=== PATIENT | female | born 1990 | race Caucasian/White ===

== ENCOUNTER 2018-08-18 01:29 | Outpatient (CLI) | payer OTHER ==
[~2018-08-18] VITALS: Ht 157.5 cm; Wt 91.2 kg
[2018-08-18 01:51] VITALS: BP 119/72
[2018-08-18] MEDS ORDERED: MULTTAB20 PO (01:54)
== END 2018-08-18 03:15 | disposition home or self-care (01) ==
LOC: M LDO 01:29
PROVIDERS: ATTEND Obstetrics & Gynecology
DX: O26.893 Other specified pregnancy related conditions, third trimester (principal); O47.1 False labor at or after 37 completed weeks of gestation; Z3A.37 37 weeks gestation of pregnancy
CPT/HCPCS: 59025; 76815; G0378; G0463

== ENCOUNTER 2018-08-27 07:47 | Inpatient (IN) | payer OTHER ==
[~2018-08-27] VITALS: Ht 157.5 cm; Wt 90.8 kg
[2018-08-27] VITALS (27 sets, daily range): BP systolic 96–130; BP diastolic 50–94
[~2018-08-27 07:47] MED LIST: MULTTAB20 PO
[2018-08-27] MEDS ORDERED: ZOLO50TA PO (08:02)
[2018-08-27] MEDS: PRENATAL VITAMINS CHEWABLE TABLET PO SCH (09:00)
[2018-08-27] MEDS ORDERED: PENICILLIN G POTASSIUM IV 5 MU in D5W MINI-BAG PLUS 100 ML IV STA (10:45)
[2018-08-27] MEDS ORDERED: LACTATED RINGER'S 1000 ML IV STA (10:45)
--- NOTE | 2018-08-27 11:03 | HPEPDOC ---
Obstetrical History & Physical General Date of Admission Aug 27, 2018 at 10:45 History of Present Illness 27 yo at 38+4 weeks today by 7+1 week US on [id number] presents to L&D w ith regular, painful contractions. Denies any vaginal bleeding or leakage of fluid. Endorses movement. complicated by depression for which she takes Zoloft, GDMA1 (well controlled), and obesity. Chief Complaint: Contractions, term Information Provided By: Patient Age: 27 : 5 Term: 3 Pre-term: 0 Abortions: 1 Livin Care Care: Good Care Dating Final EDC: Sep 06, 2018 Final EDC for Daily Update: Sep 06, 2018 Final EDC by: 1st trimester (US) (7+1 week US on [id number] set ANNA of [id number]) 1st Trimester Date: Jan 19, 2018 Antepartum Course Diagnos(e)s Depression/anxiety --> was on wellbutrin and then switched to zoloft in 3rd trimester. Obesity --> BMI 32 GDMA1 --> well controlled by diet Past Medical History Past Obstetrical History : Past Obstetrical History: Multigravida (Term X3 with pelvis proven to 6lbs 11oz) Type of Delivery: Spontaneous Vaginal Del. 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 Past Medical History Medical History Depression/anxiety obesity Surgical History: Appendectomy, Tonsilectomy Family History Significant Family History: No pertinent family hx Social History Marital Status: Family situation: Spouse/partner home Psychosocial History: Anxiety, Depression * Smoker: non-smoker Alcohol: Denies Drugs: denies Imunizations Tdap status: current Influenza Status: current Allergies Coded Allergies: hydroxyzine (Verified Allergy, Intermediate, 08/18/18) Medications Scheduled No122/Iron/Folic Acid ( Multi Tablet) 1 Each Tablet, 1 TAB PO DAILY Sertraline Hcl (Zoloft) 50 Mg Tablet, 50 MG PO DAILY Physical Examination Physical Examination GENERAL: Alert and oriented times three. ABDOMEN: Gravid and non-tender to touch. FETUS: Is vertex (VTX) by sterile vaginal examination (SVE) EXTREMITIES: No edema. Vital Signs/I&O Vital Signs Date Time Temp Pulse Resp B/P (MAP) Pulse Ox O2 Delivery O2 Flow Rate FiO2 08/27/18 10:15 79 119/82 (94) 08/27/18 10:14 99.4 08/27/18 08:07 2 Laboratory Data Urine Culture: Contaminated Pertinent Laboratoy Data Blood Type: A+ RBC Antibody Screen: Negative HIV: Negative Hepatitis B: Negative Hepatitis C: Unknown Rapid Plasma Reagin: Nonreactive Rubella: Immune Varicella: Immune Chlamydia/Gonorrhea: Negative Group B Streptococcus: Positive Quad Screen Test: Unknown Cystic Fibrosis: Unknown Glucose Tolerance Test: 150 (Also failed 3hr GTT and has GDMA1) Anatomy Ultrasound Placenta Location: Posterior Normal Anatomy: Yes Placenta Previa: No Vaginal Examination Dilation: 6 cm Effacement: 100% Station: 0 Cervical Consistency: Soft Cervical Position: Anterior Presentation: Cephalic presentation Position: Vertex (occiput) Assessment Heart Rate (FHR): 120 Variability: Moderate Accelerations: Positive Decelerations: None Tocometer Contractions: Yes Frequency: regular Duration: greater than 60 seconds Strength: palpated as strong Assessment/Plan Assessment 27 yo at 38+4 weeks gestation presents to L&D in active labor. Plan Admit to L&D for expectant management of labor. Apply IV fluids. PCN for GBS prophylaxis. Clear liquid diet. Patient may have epidural if desired. Anticipate . DO VALENTINA Hastings CHRISTOPHER J. DO Aug 27, 2018 11:03
[2018-08-27 11:22] LABS: HEMATOCRIT 32.4 % (36.0-47.0); HEMOGLOBIN 10.5 g/dl (12.0-15.5); MEAN CORPUSCULAR HEMOGLOBIN 29.1 pg (27.0-33.0); MEAN CORPUSCULAR HGB CONC 32.4 g/dl (32.0-36.5); MEAN CORPUSCULAR VOLUME 89.8 fl (80.0-96.0); PLATELET COUNT, AUTOMATED 258 10^3/uL (150-450); RED BLOOD COUNT 3.61 10^6/uL (4.00-5.40); WHITE BLOOD COUNT 11.4 10^3/uL (4.0-10.0)
[2018-08-27] MEDS ORDERED: FENTANYL 2MCG/ML ROPIVACAINE 0.2% IN 0.9% NACL 100ML IVBAG As Ordered ONE (11:49)
[2018-08-27] MEDS ORDERED: LR 1,000 ML IV SCH (12:23)
[2018-08-27] MEDS ORDERED: NALOXONE INJ 0.4 MG/1 ML VIAL (J2310) IV PRN (13:00)
[2018-08-27] MEDS ORDERED: ePHEDrine SULFATE 25 MG/5 ML(5MG/ML) SYRINGE IV PRN (13:00)
[2018-08-27] MEDS ORDERED: EPIDURAL COMMENT XX SCH (13:00)
[2018-08-27] MEDS ORDERED: REFRIGERATOR IV KEYS XX PRN (13:00)
[2018-08-27] MEDS ORDERED: EPIDURAL/PCA KEYS XX PRN (13:00)
[2018-08-27] MEDS ORDERED: LACTATED RINGER'S 1000 ML IV PRN (13:00)
[2018-08-27] MEDS ORDERED: FENTANYL/ROPIVACAINE/NACL BAG 100 ML EPIDURAL SCH (13:00)
[2018-08-27] MEDS ORDERED: diphenhydrAMINE INJ 50MG/ML VIAL (J1200) IV PRN (13:00)
[2018-08-27] MEDS ORDERED: ONDANSETRON 4MG/2ML VIAL (J2405) IV PRN (13:00)
[2018-08-27] MEDS ORDERED: OXYTOCIN 30 UNITS IN 0.9% NaCl 500ML IV BAG (J2590) As Ordered ONE (13:20)
[2018-08-27] MEDS ORDERED: PENICILLIN G POTASSIUM IV 2.5 MU in APPROPRIATE DILUENT 1 EA IV SCH (15:30)
[2018-08-27] MEDS ORDERED: OXYTOCIN DRIP 30 UNITS in APPROPRIATE DILUENT 1 EA IV SCH (15:46)
--- NOTE | 2018-08-27 15:50 | DNPDOC ---
[facility] Delivery Note Delivery Note DATE OF DELIVERY: 27Aug2018 at ~1535 PREDELIVERY DIAGNOSIS: 38+4 weeks gestation and active labor POST DELIVERY DIAGNOSIS: Delivered. PROCEDURE: Spontaneous vaginal delivery [employer] ASSISTANT: Dr. Ford ANESTHESIA: Epidural ESTIMATED BLOOD LOSS: 200 mL. FINDINGS: Viable male , 7lbs 3oz, Apgars 9/9 DELIVERY SUMMARY: Presented to room as patient felt a strong urge to push. Cervical exam revealed fetus at +2 station. SROM occurred just before pushing began. The bed was broken down and she was prepped for delivery. With excellent maternal pushing effort her delivered. presentation was ELYSSA with restitution to ROT. The left anterior shoulder delivered with gentle traction followed easily by the remainder of the body. The infant was dried and stimulated on the field and a bulb suction was used. The infant was then placed on the maternal abdomen and cried vigorously. The three vessel cord was then clamped and cut by me after appropriate time delay. Third stage was then completed with gentle traction on the cord and it was productive of an intact placenta. The uterine fundus was firmed with massage and pitocin was administered via IV bolus. Inspection of the vagina, perineum, and cervix revealed no lacerations. The fundus was palpated again and was firm. Sponge, instrument, and needle counts were correct X2. Mother stable when I left the room. DO VALENTINA Hastings CHRISTOPHER J. DO Aug 27, 2018 15:50
[2018-08-27] MEDS ORDERED: MEASLES,MUMPS,RUBELLA VACCINE INJ (MMR-II) (90707) SC SCH (16:00)
[2018-08-27] MEDS ORDERED: IBUPROFEN 600 MG TAB PO PRN (16:00)
[2018-08-27] MEDS ORDERED: DIBUCAINE 1% OINTMENT 30GM TOP PRN (16:00)
[2018-08-27] MEDS ORDERED: PROMETHAZINE 25 MG TAB PO PRN (16:00)
[2018-08-27] MEDS ORDERED: RHOGAM 300 MCG (1500 IU) INJ (J2790) IM SCH (16:00)
[2018-08-27] MEDS ORDERED: DOCUSATE SODIUM 100 MG CAP PO PRN (16:00)
[2018-08-27] MEDS ORDERED: ACETAMINOPHEN 500 MG TAB PO PRN (16:00)
[2018-08-27] MEDS ORDERED: IBUPROFEN 800 MG TAB PO PRN (16:00)
[2018-08-27] MEDS ORDERED: ACETAMINOPHEN TAB 650MG DOSE (2X325MG) PO PRN (16:00)
[2018-08-28 06:39] VITALS: BP 102/59
--- NOTE | 2018-08-28 08:29 | NUR ---
Progress Note Date of Service: Aug 28, 2018 Evy is a 27 yo G5 now P4014 s/p uncomplicated on 27 August at ~1530 after being admitted for active labor. She is currently recovering on the sparks. She reports feeling well this AM and has no complaints. She is ambulating, voiding, tolerating a regular diet, has minimal pain, and minimal lochia. She desires dc home this evening. Vitals - VSS, normotensive, afebrile, non tachycardic General - AAOX3, sitting up in bed, NAD, pleasant and conversant Abdomen - Fundus firm at U-2. No fundal tenderness. Lochia- scant rubra Extremities - No edema UO - appropriate. Ms. Cabrera is doing well and is making an appropriate recovery. Discharge medications ordered at [facility]. DC to home and/or to boarder status this morning pending disposition of NBN this afternoon. Reviewed warning signs, return precautions and and BH resources. Patient advised patient to schedule 6-8 week PP exam. All questions answered.
--- NOTE | 2018-08-28 08:32 | NUR ---
[facility] OB Discharge Summary : 5 Parity: now 4014 VDRL: NR RH: POS GBS: POS Labor-term at 38+4 weeks Delivery 27 August, uncomplicated and attended by Dr. Glynn -see delivery note Anesthesia: none Episiotomy: none AP/PP Course: routine, uncomplicated Admission Dx: Term labor Discharge Dx: Delivered Condition at discharge: Stable Discharge instructions: Dc home and/or boarder status pending disposition of NBN Activity: no heavy lifting Diet: regular Medications: as ordered at [facility] outpatient pharmacy F/U: [facility] Outpatient OBGYN clinic in 6-8 weeks
[2018-08-28] MEDS ORDERED: IBUP-1022 PO (08:36)
[2018-08-28] MEDS ORDERED: ACET1TAB55 PO (08:36)
[2018-08-28] MEDS: PRENATAL VITAMINS CHEWABLE TABLET PO SCH (08:45)
== END 2018-08-28 12:00 | disposition home or self-care (01) | DRG 807 ==
LOC: M LDO 07:47 → M LDI 10:45 → M OBS 17:56
PROVIDERS: ADMIT Obstetrics & Gynecology; ATTEND Obstetrics & Gynecology
PROC: 10E0XZZ Delivery of Products of Conception, External Approach (ICD-10-PCS; principal; 2018-08-27)
DX: O99.344 Other mental disorders complicating childbirth (principal); Z37.0 Single live birth; Z3A.38 38 weeks gestation of pregnancy; F32.9 Major depressive disorder, single episode, unspecified; O99.214 Obesity complicating childbirth; E66.9 Obesity, unspecified; O99.824 Streptococcus B carrier state complicating childbirth; O24.420 Gestational diabetes mellitus in childbirth, diet controlled

== ENCOUNTER → 2019-12-11 | Outpatient (REF) | payer OTHER ==
[~2019-12-11] MED LIST changes: +ACET1TAB55 PO; +IBUP-1022 PO; +ZOLO50TA PO
== END ==
LOC: M WUC 17:07
PROVIDERS: ATTEND Physician Assistant
DX: J02.9 Acute pharyngitis, unspecified (principal)

== ENCOUNTER → 2020-07-22 | Outpatient (CLI) | payer OTHER ==
[2020-07-22 17:29] LABS: BASO % 0.3 % (0.0-1.0); EOS % 0.5 % (0.0-3.0); HEMATOCRIT 37.5 % (36.0-47.0); HEMOGLOBIN 12.2 g/dl (12.0-15.5); LYMPH # 2.2 10^3/uL (1.5-5.0); LYMPH % 38.6 % (24.0-44.0); MEAN CORPUSCULAR HEMOGLOBIN 31.4 pg (27.0-33.0); MEAN CORPUSCULAR HGB CONC 32.5 g/dl (32.0-36.5); MEAN CORPUSCULAR VOLUME 96.4 fl (80.0-96.0); MONO # 0.4 10^3/uL (0.0-0.8); MONO % 6.4 % (2.0-8.0); NEUTROPHILS # 3.1 10^3/uL (1.5-8.5); NEUTROPHILS % 53.9 % (36.0-66.0); PLATELET COUNT, AUTOMATED 213 10^3/uL (150-450); RED BLOOD COUNT 3.89 10^6/uL (4.00-5.40); WHITE BLOOD COUNT 5.8 10^3/uL (4.0-10.0)
[2020-07-22 18:17] LABS: IMMUNOGLOBULIN A 74.4 MG/DL (70-400); IMMUNOGLOBULIN E 4.6 IU/ML (<100); IMMUNOGLOBULIN G 1270 MG/DL (681-1648); IMMUNOGLOBULIN M 74.1 MG/DL (40-230)
[2020-07-22 18:21] LABS: ERYTHROCYTE SEDIMENTATION RATE 12 mm/hr (0-20)
== END ==
LOC: M WUC 11:32
PROVIDERS: ATTEND Allergy & Immunology Allergy
DX: D84.9 Immunodeficiency, unspecified (principal)

== ENCOUNTER → 2021-04-07 | Outpatient (REF) | payer OTHER ==
[2021-04-15 18:11] LABS: STREP PNEUMO TYPE 1 0.4 ug/mL (>1.3); STREP PNEUMO TYPE 12F <0.1 ug/mL (>1.3); STREP PNEUMO TYPE 14 1.2 ug/mL (>1.3); STREP PNEUMO TYPE 18C 0.3 ug/mL (>1.3); STREP PNEUMO TYPE 19A 1.4 ug/mL (>1.3); STREP PNEUMO TYPE 19F 0.7 ug/mL (>1.3); STREP PNEUMO TYPE 23F 0.4 ug/mL (>1.3); STREP PNEUMO TYPE 3 1.8 ug/mL (>1.3); STREP PNEUMO TYPE 4 0.4 ug/mL (>1.3); STREP PNEUMO TYPE 6B 4.8 ug/mL (>1.3); STREP PNEUMO TYPE 7F <0.1 ug/mL (>1.3); STREP PNEUMO TYPE 8 0.5 ug/mL (>1.3); STREP PNEUMO TYPE 9N 0.3 ug/mL (>1.3); STREP PNEUMO TYPE 9V 0.3 ug/mL (>1.3)
== END ==
LOC: M WUC 20:37
PROVIDERS: ATTEND Allergy & Immunology Allergy
DX: D84.9 Immunodeficiency, unspecified (principal)

== ENCOUNTER → 2021-05-20 | Outpatient (CLI) | payer OTHER | LOC: M RAD 17:10 | PROVIDERS: ATTEND Allergy & Immunology Allergy | DX: J30.2 Other seasonal allergic rhinitis (principal) ==